=== PATIENT | female | born 1935 | race Caucasian/White ===

== ENCOUNTER → 2016-12-21 | Outpatient (CLI) | payer OTHER, MEDICARE ==
[~2016-12-21] MED LIST: ACIDOPHILUS PR1 EACH PO; ALEVE220 M1 PO; ALLERGY RELIEF10 M3 PO; APAP500 PO; ATORVASTATIN CA10 MG PO; BYSTOLIC2.5 MG PO; CALCIUM 600 +1 EAC1 PO; CENTRUM SILVER1 EAC4 PO; FISH OIL 1,0001 EAC5 PO; FUROSEMIDE 40 M40 M1 PO; GLUCOSAMINE &1 EAC1 PO; K-DUR 20 MEQ T20 MEQ PO; KLOR-CON 1010 MEQ PO; OMEPRAZOLE 20 M20 MG PO; PHILLIPS' LAXA100 MG PO; VITAMIN B-12100 MC1 PO; VITAMIN C + RO500 MG PO; ZYRTEC 10 MG TA10 MG PO
== END ==
LOC: RAD 13:22
DX: Z12.31 Encounter for screening mammogram for malignant neoplasm of breast (principal)

== ENCOUNTER → 2017-12-21 | Outpatient (CLI) | payer OTHER, MEDICARE | LOC: RAD 01:24 | DX: Z12.31 Encounter for screening mammogram for malignant neoplasm of breast (principal) ==

== ENCOUNTER → 2019-01-14 | Outpatient (CLI) | payer OTHER, MEDICARE | LOC: RAD 01:59 | DX: Z12.31 Encounter for screening mammogram for malignant neoplasm of breast (principal) ==

== ENCOUNTER → 2020-01-20 | Outpatient (CLI) | payer OTHER, MEDICARE | LOC: RAD 12:40 → NUC 12:40 | PROVIDERS: ATTEND Family Medicine | DX: Z12.31 Encounter for screening mammogram for malignant neoplasm of breast (principal); N64.89 Other specified disorders of breast; M85.88 Other specified disorders of bone density and structure, other site; N91.2 Amenorrhea, unspecified; N95.9 Unspecified menopausal and perimenopausal disorder ==